=== PATIENT | female | born 2000 | race Asian ===

== ENCOUNTER 2025-05-31 18:25 | Emergency (ER) | payer OTHER ==
[~2025-05-31] VITALS: Ht 167.6 cm; Wt 49.0 kg
[2025-05-31 18:29] VITALS: TEMP 98.3
[2025-05-31 19:08] VITALS: BP 129/67; O2SAT 99
== END 2025-05-31 19:08 | disposition home or self-care (01) ==
LOC: ER 18:31
DX: R55 Syncope and collapse (principal); R42 Dizziness and giddiness